=== PATIENT | male | born 1965 | race Caucasian/White ===

== ENCOUNTER 2018-07-23 13:39 | Emergency (ER) | payer MEDICARE ==
[~2018-07-23] VITALS: Ht 170.2 cm; Wt 82.0 kg
[~2018-07-23 13:39] MED LIST: AMIT10TA PO; AMIT25TA PO; DIVA500T17 PO; GABA300C10 PO; HYDR25TA6 PO; LISI-167 PO; SERT50TA28 PO
[2018-07-23 14:44] LABS: MEAN CORPUSCULAR HEMOGLOBIN 31.2 pg (27.5-34.5); MEAN CORPUSCULAR HGB CONC 33.7 g/dL (33.2-36.2); MEAN CORPUSCULAR VOLUME 92.6 fL (81-97); MEAN PLATELET VOLUME 9.1 fL (7.4-10.4); PLATELET COUNT 243 x10^3/uL (130-400); RED BLOOD COUNT 5.55 x10^6/uL (4.38-5.82); RED CELL DISTRIBUTION WIDTH 16.3 % (9.4-14.8)
--- NOTE | 2018-07-23 14:44 | NUR ---
PT RESTING ON GURNMEY, ALERT, EATING DIET TRAY. VSS.
[2018-07-23 14:53] LABS: ALANINE AMINOTRANSFERASE 28 U/L (12-78); ALBUMIN 4.2 g/dL (3.4-5.0); ANION GAP 13 mmol/L (5-15); CHLORIDE 107 mmol/L (98-107); CREATININE 1.35 mg/dL (0.7-1.3)
[2018-07-23 14:56] LABS: ALKALINE PHOSPHATASE 123 U/L (45-117); BILIRUBIN,TOTAL 0.5 mg/dL (0.2-1.0); TOTAL PROTEIN 8.7 g/dL (6.4-8.2)
[2018-07-23] MEDS ORDERED: SODIUM CHLORIDE FLUSH 10ML SYR IVF ONE (15:00)
[2018-07-23] MEDS ORDERED: SODIUM CHLORIDE 0.9% 1,000 ML IV ONE (15:00)
[2018-07-23 15:07] LABS: ACETONE, SERUM Trace (10mg/dL) mg/dL (Negative)
[2018-07-23 15:16] LABS: BASOPHILS # (AUTO) 0.24 x10^3/uL (0-0.1); BASOPHILS % (AUTO) 2 % (0-1); EOSINOPHILS # (AUTO) 0.01 x10^3/uL (0-0.4); EOSINOPHILS % (AUTO) 0 % (1-7); LYMPHOCYTES # (AUTO) 1.02 x10^3/uL (1-3.4); LYMPHOCYTES % (AUTO) 7 % (22-44); MD SCAN; MONOCYTES # (AUTO) 0.32 x10^3/uL (0.2-0.8); MONOCYTES % (AUTO) 2 % (2-9); NEUTROPHILS % (AUTO) 89 % (42-75)
[2018-07-23 15:41] VITALS: BP 102/68
--- NOTE | 2018-07-23 16:29 | NUR ---
PT REMOVED AL MONITORING DEVICES AND CHANGED INTO PERSONAL CLOTHES. STATES HE WOULD LIKE TO LEAVE AND THAT HIS RIDE IS ON THE WAY. PT EDUCATED TO WAIT FOR ALL LAB RESUTS AND TO SPEAK WITH MD REGARDING DC INSTRUCTIONS. PT STATES HE TOSHIA WAIT. PT AMBUKATORY TO BATHROOM USING CANE, HAS A LIMP. STATES HE WALKS THIS WAY AT BASELINE. PT ABLE TO SAFELY AMBULATE TO BATHROOM.
[2018-07-23 16:41] LABS: MICROSCOPIC INDICATED
[2018-07-23 16:49] LABS: CULTURE INDICATED? YES
--- NOTE | 2018-07-23 17:19 | NUR ---
pt removed iv nd left without dc instructions or paperwork. pt left with all personal belongings.
== END 2018-07-23 17:21 | disposition left against medical advice (07) ==
LOC: ED 15:09
DX: E16.2 Hypoglycemia, unspecified (principal); F10.231 Alcohol dependence with withdrawal delirium; I10 Essential (primary) hypertension; F17.200 Nicotine dependence, unspecified, uncomplicated
CPT/HCPCS: 71045; 80053; 80307; 81001; 82010; 82962; 83690; 85025; 87086; 93005; 96360; 99284; J7030